=== PATIENT | female | born 1995 | race Caucasian/White ===

== ENCOUNTER 2017-02-09 09:30 | Emergency (ER) | payer OTHER ==
[2017-02-09 09:35] VITALS: TEMP 98.9; BMI 31.8
--- NOTE | 2017-02-09 10:19 | PDOC ---
History of Present Illness - General Chief Complaint: Vaginal Bleeding Stated Complaint: VAGINAL BLEEDING Time Seen by Provider: 02/09/17 09:45 - History of Present Illness Initial Comments: 02/09/17 10:14 21 F with no PMH presents to ER with abnormal menstrual bleeding. Pt states that her period started 12 days ago, and she has been bleeding continuously since then. She typically bleeds for 5 days and is very regular. Pt states that she has been going through 4 pads per day, which is her normal flow, but for over twice as long as usual. Pt endorses suprapubic cramping consistent with her menstrual cramps. Denies any other vaginal discharge, denies any sexual history. Denies dysuria. Denies lightheadedness/dizziness. Denies CP/SOB/ palpitations. Pt states that she has never seen an appliance worker before, is not on OCPs. Past History - Past Medical History Allergies/Adverse Reactions: Allergies Allergy/AdvReac Type Severity Reaction Status Date / Time No Known Allergies Allergy Verified 02/09/17 09:36 Home Medications: Ambulatory Orders NK [No Known Home Medication] 02/09/17 - Psycho/Social/Smoking Cessation Hx Suicidal Ideation: No Smoking History: Never smoked Information on smoking cessation initiated: No Review of Systems - Review of Systems Comments:: 02/09/17 10:19 "GENERAL/CONSTITUTIONAL: No fever or chills. No weakness. HEAD, EYES, EARS, NOSE AND THROAT: No change in vision. No ear pain or discharge. No sore throat. CARDIOVASCULAR: No chest pain or shortness of breath. RESPIRATORY: No cough, wheezing, or hemoptysis. GASTROINTESTINAL: +cramps, No nausea, vomiting, diarrhea or constipation. GENITOURINARY: +vaginal bleeding, No dysuria, frequency, or change in urination. MUSCULOSKELETAL: No joint or muscle swelling or pain. No neck or back pain. SKIN: No rash NEUROLOGIC: No headache, vertigo, loss of consciousness, or change in strength/ sensation. ENDOCRINE: No increased thirst. No abnormal weight change. HEMATOLOGIC/LYMPHATIC: No anemia, easy bleeding, or history of blood clots. ALLERGIC/IMMUNOLOGIC: No hives or skin allergy. " *Physical Exam - Vital Signs Last Vital Signs Temp Pulse Resp BP Pulse Ox 98.9 F 76 18 122/69 99 02/09/17 09:31 02/09/17 09:31 02/09/17 09:31 02/09/17 09:31 02/09/17 09:31 - Physical Exam Comments: 02/09/17 10:20 "GENERAL: Awake, alert, and fully oriented, in no acute distress HEAD: No signs of trauma EYES: PERRLA, EOMI, sclera anicteric, conjunctiva clear ENT: Auricles normal inspection, hearing grossly normal, nares patent, oropharynx clear without exudates. Moist mucosa NECK: Normal ROM, supple, no lymphadenopathy, JVD, or masses LUNGS: Breath sounds equal, clear to auscultation bilaterally. No wheezes, and no crackles HEART: Regular rate and rhythm, normal S1 and S2, no murmurs, rubs or gallops ABDOMEN: Soft, nontender, normoactive bowel sounds. No guarding, no rebound. No masses EXTREMITIES: Normal range of motion, no edema. No clubbing or cyanosis. No cords, erythema, or tenderness NEUROLOGICAL: Cranial nerves II through XII grossly intact. Normal speech, normal gait SKIN: Warm, Dry, normal turgor, no rashes or lesions noted. : scant blood in vaginal vault, os closed, no CMT, no masses, no adnexal tenderness ED Treatment Course - LABORATORY CBC & Chemistry Diagram: 02/09/17 10:35 02/09/17 10:35 Medical Decision Making - Medical Decision Making 02/09/17 10:21 21 F with menorrhagia. Pt with stable vitals, well appearing. Completely benign abdomen. No signs of significant blood loss. Pelvic exam with no masses or tenderness. Will check CBC to r/o anemia, coags to r/o coagulopathy, UPT, and UA. - Labs, coags, UPT, UA - F/u post doc fellowship 02/09/17 11:36 CBC,CMP WBC 9.7 K/mm3 (4.0-10.0) 02/09/17 10:35 RBC 4.94 M/mm3 (3.60-5.2) 02/09/17 10:35 Hgb 12.9 GM/dL (10.7-15.3) 02/09/17 10:35 Hct 39.7 % (32.4-45.2) 02/09/17 10:35 MCV 80.3 fl (80-96) 02/09/17 10:35 MCH 26.2 pg (25.7-33.7) 02/09/17 10:35 MCHC 32.6 g/dl (32.0-36.0) 02/09/17 10:35 RDW 14.5 % (11.6-15.6) 02/09/17 10:35 Plt Count 204 K/MM3 (134-434) 02/09/17 10:35 MPV 9.2 fl (7.5-11.1) 02/09/17 10:35 Neutrophils % 59.5 % (42.8-82.8) 02/09/17 10:35 Lymphocytes % 31.6 % (8-40) 02/09/17 10:35 Monocytes % 6.4 % (3.8-10.2) 02/09/17 10:35 Eosinophils % 1.8 % (0-4.5) 02/09/17 10:35 Basophils % 0.7 % (0-2.0) 02/09/17 10:35 Sodium 137 mmol/L (136-145) 02/09/17 10:35 Potassium 4.5 mmol/L (3.5-5.1) 02/09/17 10:35 Chloride 105 mmol/L (98-107) 02/09/17 10:35 Carbon Dioxide 28 mmol/L (21-32) 02/09/17 10:35 Anion Gap 4 (8-16) L 02/09/17 10:35 BUN 13 mg/dL (7-18) 02/09/17 10:35 Creatinine 0.6 mg/dL (0.55-1.02) 02/09/17 10:35 Creat Clearance w eGFR > 60 (>60) 02/09/17 10:35 Random Glucose 99 mg/dL (74-106) 02/09/17 10:35 Calcium 9.2 mg/dL (8.5-10.1) 02/09/17 10:35 Total Bilirubin 0.4 mg/dL (0.2-1.0) 02/09/17 10:35 AST 31 U/L (15-37) 02/09/17 10:35 ALT 34 U/L (12-78) 02/09/17 10:35 Alkaline Phosphatase 93 U/L (45-117) 02/09/17 10:35 Total Protein 8.3 g/dl (6.4-8.2) H 02/09/17 10:35 Albumin 4.0 g/dl (3.4-5.0) 02/09/17 10:35 TSH 1.36 uIU/ml (0.358-3.74) 02/09/17 10:35 Labs wnl. Pt hemodynamically stable. Safe for DC home. *DC/Admit/Observation/Transfer Diagnosis at time of Disposition: Menorrhagia - Discharge Dispostion Disposition: HOME - Referrals Referrals: Brad Serrano MD [Staff Physician] - - Patient Instructions Printed Discharge Instructions: DI for Menorrhagia Additional Instructions: Please call the number provided to make an appointment with an appliance worker to have your vaginal bleeding further evaluated. You may need to start taking control pills to help control your menstrual cycle. If you experience persistent or worsening bleeding, lightheadedness, palpitations, or any other concerning symptoms, return immediately to the ER. - Attestations Physician Attestion: 02/09/17 11:39 I, Dr. Kyler Roth MD, attest that this document has been prepared under my direction and personally reviewed by me in its entirety. I further attest, that it accurately reflects all work, treatment, procedures and medical decision -making performed by me.
[2017-02-09] MEDS ORDERED: ACETAMINOPHEN 500 MG TABLET (FP) PO ONE (10:47)
[2017-02-09 10:52] LABS: BASOPHIL 0.7 % (0-2.0); EOSINOPHIL 1.8 % (0-4.5); MCH 26.2 pg (25.7-33.7); MCHC 32.6 g/dl (32.0-36.0); MEAN CELL VOLUME 80.3 fl (80-96); MEAN PLT VOLUME 9.2 fl (7.5-11.1); NEUTROPHILS 59.5 % (42.8-82.8); PLATELET COUNT 204 K/MM3 (134-434); RDW 14.5 % (11.6-15.6); WHITE BLOOD COUNT 9.7 K/mm3 (4.0-10.0)
[2017-02-09 10:54] LABS: URINE APPEARANCE SLCLOUDY; URINE BILIRUBIN NEGATIVE (NEGATIVE); URINE BLOOD 3+ (NEGATIVE); URINE COLOR YELLOW; URINE GLUCOSE (UA) NEGATIVE (NEGATIVE); URINE KETONE NEGATIVE (NEGATIVE); URINE LEUK ESTERASE NEGATIVE (NEGATIVE); URINE NITRITE NEGATIVE (NEGATIVE); URINE UROBILINOGEN NEGATIVE mg/dL (0.2-1.0)
[2017-02-09 10:57] LABS: URINE PROTEIN 1+ (NEGATIVE)
[2017-02-09 10:59] LABS: CALCIUM OXALATE CRYSTALS RARE /hpf (NONE SEEN); URINE BACTERIA RARE /hpf (NONE SEEN); URINE MUCUS MANY; URINE RBC 476 /hpf (0-3); URINE WBC 3 /hpf (3-5)
[2017-02-09 11:07] LABS: INR 1.1 (0.82-1.09); PROTHROMBIN TIME (PATIENT) 12.1 SEC (9.98-11.88)
[2017-02-09 11:09] LABS: ACTIVATED PTT 37.7 SECONDS (26.9-34.4)
[2017-02-09 11:17] LABS: ANION GAP 4 (8-16); BILIRUBIN,TOTAL 0.4 mg/dL (0.2-1.0); CALCIUM 9.2 mg/dL (8.5-10.1); CO2 28 mmol/L (21-32); CREATININE 0.6 mg/dL (0.55-1.02); GLUCOSE,RANDOM 99 mg/dL (74-106); SGPT/ALT 34 U/L (12-78); TOT PROT 8.3 g/dl (6.4-8.2)
[2017-02-09 11:26] LABS: ALK PHOS 93 U/L (45-117); THYROID STIMULATING HORMONE 1.36 uIU/ml (0.358-3.74)
[2017-02-09 11:29] LABS: SGOT/AST 31 U/L (15-37)
[2017-02-09 11:48] VITALS: BP 108/88; PULSE 68
== END 2017-02-09 11:49 | disposition home or self-care (01) ==
LOC: JER 09:30
DX: N92.0 Excessive and frequent menstruation with regular cycle (principal)
CPT/HCPCS: 36415; 80053; 81003; 81015; 84443; 84703; 85025; 85610; 85730; 86850; 86900; 86901; 99282-25

== ENCOUNTER 2019-01-07 16:41 | Emergency (ER) | payer OTHER ==
--- NOTE | 2019-01-07 16:44 | PDOC ---
Rapid Medical Evaluation Time Seen by Provider: 01/07/19 16:43 Medical Evaluation: Allergies Allergy/AdvReac Type Severity Reaction Status Date / Time No Known Allergies Allergy Verified 01/07/19 16:43 01/07/19 16:43 HPI: 9 weeks gravid with bleeding PV PE: No gross deficits ORDERS: Labs and US Discharge Disposition - Diagnosis Threatened - Referrals - Patient Instructions - Post Discharge Activity
[2019-01-07 16:47] VITALS: BP 130/76; PULSE 83; TEMP 98.8; BMI 31.5
--- NOTE | 2019-01-07 17:28 | PDOC ---
History of Present Illness - General Chief Complaint: Vaginal Bleeding Stated Complaint: BLEEDING Time Seen by Provider: 01/07/19 16:43 - History of Present Illness Initial Comments: 01/07/19 18:18 Ms. Win is a 23 y/o with no PMH, , 9 weeks (LMP November 02 2018) presenting after an episode of vaginal bleeding. She reports using the restroom at work to urinate and noticing three "quarter sized" splashes of blood in the toilet. She reports that this is her first . She also reports mild right lower abdominal pain. She reports that her Tuber Machine Cutter is Dr. Andressa Godinez, and that she has an ultrasound scheduled for January 30. Her only medications are an iron supplement and vitamins. Past History - Past Medical History Allergies/Adverse Reactions: Allergies Allergy/AdvReac Type Severity Reaction Status Date / Time No Known Allergies Allergy Verified 01/07/19 16:43 Home Medications: Ambulatory Orders NK [No Known Home Medication] 02/09/17 - Reproductive History Therapeutic (s) & number: No - Suicide/Smoking/Psychosocial Hx Smoking History: Never smoked Hx Alcohol Use: No Drug/Substance Use Hx: No Review of Systems - Review of Systems Able to Perform ROS?: Yes Comments:: 01/07/19 18:38 ROS: GENERAL/CONSTITUTIONAL: No fever or chills. No weakness. HEAD, EYES, EARS, NOSE AND THROAT: No change in vision. No ear pain or discharge. No sore throat. CARDIOVASCULAR: No chest pain or shortness of breath RESPIRATORY: No cough, wheezing, or hemoptysis. GASTROINTESTINAL: No nausea, vomiting, diarrhea or constipation. GENITOURINARY: Single episode vaginal bleed. No dysuria, frequency, or change in urination. MUSCULOSKELETAL: No joint or muscle swelling or pain. No neck or back pain. SKIN: No rash NEUROLOGIC: No headache, vertigo, loss of consciousness, or change in strength/ sensation. ENDOCRINE: No increased thirst. No abnormal weight change HEMATOLOGIC/LYMPHATIC: No anemia, easy bleeding, or history of blood clots. ALLERGIC/IMMUNOLOGIC: No hives or skin allergy. *Physical Exam - Vital Signs Last Vital Signs Temp Pulse Resp BP Pulse Ox 98.8 F 83 18 130/76 100 01/07/19 16:44 01/07/19 16:44 01/07/19 16:44 01/07/19 16:44 01/07/19 16:44 - Physical Exam Comments: 01/07/19 18:37 PE: GENERAL: Awake, alert, and fully oriented, in no acute distress HEAD: No signs of trauma, normocephalic, atraumatic EYES: PERRLA, EOMI, sclera anicteric, conjunctiva clear ENT: Auricles normal inspection, hearing grossly normal, nares patent, oropharynx clear without exudates. Moist mucosa NECK: Normal ROM, supple, no lymphadenopathy, JVD, or masses LUNGS: No distress, speaks full sentences, clear to auscultation bilaterally HEART: Regular rate and rhythm, normal S1 and S2, no murmurs, rubs or gallops, peripheral pulses normal and equal bilaterally. ABDOMEN: Mild tenderness of R lower abdomen. Soft, normoactive bowel sounds. No guarding, no rebound. No masses EXTREMITIES : Normal inspection, Normal range of motion, no edema. No clubbing or cyanosis. NEUROLOGICAL: Cranial nerves II through XII grossly intact. Normal speech, normal gait, no focal sensorimotor deficits SKIN: Warm, Dry, normal turgor, no rashes or lesions noted 01/07/19 19:16 Pelvic exam: Cervical os visualized, closed, no erythema or active bleeding. ED Treatment Course - LABORATORY CBC & Chemistry Diagram: 01/07/19 17:21 01/07/19 17:50 Medical Decision Making - Medical Decision Making 23 y/o F with no PMH 9 weeks p/w one episode vaginal bleed at work with mild right lower abdominal pain. Differential includes first trimester bleeding, R ectopic , threatened . Plan: CBC CMP T/S Beta hcg quant Transvaginal ultrasound Pelvic exam 01/07/19 18:43 Patient being evaluated by ultrasound resident - abdominal US. cardiac movements noted. *DC/Admit/Observation/Transfer Diagnosis at time of Disposition: First trimester bleeding - Discharge Dispostion Disposition: HOME Condition at time of disposition: Good Decision to Admit order: No - Referrals Referrals: Andressa Godinez CNM [Primary Care Provider] - - Patient Instructions Printed Discharge Instructions: DI for Vaginal Bleeding During Additional Instructions: You were evaluated in the Emergency Department for vaginal bleeding during the first trimester of your . We conducted a physical exam, bloodwork, and ultrasound imaging of your uterus. We did not see any active bleeding from the uterus during the pelvic exam. The ultrasound showed a with a heartbeat. Some women have small amounts of bleeding during their first trimester. 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 Please return to the emergency department if you develop any sharp pain, have worsening bleeding and are soaking through two pads in two hours, or if you feel dizzy, confused, chest pain, trouble breathing, or have a high fever. Please take tylenol over the counter as needed for pain. - Post Discharge Activity
[2019-01-07 17:48] LABS: BASO % 0.3 % (0-2.0); EOS % 1.4 % (0-4.5); HEMATOCRIT 38.4 % (32.4-45.2); HEMOGLOBIN 12.5 GM/dL (10.7-15.3); LYMPH % 30.2 % (8-40); MCH 26.3 pg (25.7-33.7); MCHC 32.5 g/dl (32.0-36.0); MEAN CELL VOLUME 80.8 fl (80-96); MEAN PLT VOLUME 9.4 fl (7.5-11.1); MONO % 6.1 % (3.8-10.2); PLATELET COUNT 184 K/MM3 (134-434); RBC 4.76 M/mm3 (3.60-5.2); RDW 14.7 % (11.6-15.6); WHITE BLOOD COUNT 10.4 K/mm3 (4.0-10.0)
[2019-01-07 17:53] LABS: INR 1.06 (0.83-1.09); PROTHROMBIN TIME (PATIENT) 12.5 SEC (9.7-13.0)
[2019-01-07 17:54] LABS: PH,URINE 6.5 (5.0-8.0); URINE APPEARANCE CLEAR; URINE BILIRUBIN NEGATIVE (NEGATIVE); URINE COLOR YELLOW; URINE GLUCOSE (UA) NEGATIVE (NEGATIVE); URINE KETONE NEGATIVE (NEGATIVE); URINE LEUK ESTERASE NEGATIVE (NEGATIVE); URINE NITRITE NEGATIVE (NEGATIVE); URINE PROTEIN NEGATIVE (NEGATIVE); URINE UROBILINOGEN 0.2 mg/dL (0.2-1.0)
[2019-01-07] MEDS ORDERED: SODIUM CHLORIDE 0.9% 1000 ML INFUS.BAG IV ONE (18:46)
--- NOTE | 2019-01-07 18:46 | PDOC ---
Documentation entered by Marylu Boston SCRIBE, acting as scribe for Karli Hamm MD. Karli Hamm MD: This documentation has been prepared by the Ludy berumen Brenda, SCRIBE, under my direction and personally reviewed by me in its entirety. I confirm that the documentation accurately reflects all work, treatment, procedures, and medical decision making performed by me. Attending Attestation - Resident Resident Name: Deion Mason - ED Attending Attestation I have performed the following: I have examined & evaluated the patient, The case was reviewed & discussed with the resident, I agree w/resident's findings & plan, Exceptions are as noted - HPI HPI: 01/07/19 18:37 23 yo G1po @ 9 weeks , with no significant PMH who presents to the emergency department with an episode of vaginal bleeding. As per patient, she was urinating in the restroom at work, at which time she noted 3 small, quarter sized dashes of blood in the toilet. She also endorses mild lower abd pain. crampy in nature. no mod factors. and has been taking iron supplements and vitamins. She reports having an ultrasound scheduled for 01/30/19. LMP was November 02, 2018. no other complaints. The patient denies chest pain, shortness of breath, headache and dizziness. Denies fever, chills, nausea, vomiting, diarrhea and constipation. Denies dysuria, frequency, urgency and hematuria. Allergies: NKA Past surgical history: None reported Social history: No tobacco use. SUPERVISOR STRIPPING: Andressa Godinez CNM 01/07/19 18:44 - Physicial Exam PE: 01/07/19 18:45 awake alert lungs clear bilat heart rrr no mrg abd soft mild suprapubic ttp no rebound no guarding. no cva tendernss. nuero alert oriented x 3. - Medical Decision Making 01/07/19 18:45 23 yo F G1P) at 9 weeks with vaginal bleeding. differential ectopic, threatened ab, incomlete ab breakthrough bleeding. plan tvus labs type and screen ua bhcg.
[2019-01-07 18:47] LABS: ALBUMIN 3.8 g/dl (3.4-5.0); BILIRUBIN,TOTAL 0.1 mg/dL (0.2-1); BLOOD UREA NITROGEN 13.2 mg/dL (7-18); CREATININE 0.6 mg/dL (0.55-1.3); POTASSIUM 3.7 mmol/L (3.5-5.1); TOT PROT 7.4 g/dl (6.4-8.2)
--- NOTE | 2019-01-07 19:31 | PDOC ---
*Physical Exam - Vital Signs Last Vital Signs Temp Pulse Resp BP Pulse Ox 98.8 F 83 18 130/76 100 01/07/19 16:44 01/07/19 16:44 01/07/19 16:44 01/07/19 16:44 01/07/19 16:44 ED Treatment Course - LABORATORY CBC & Chemistry Diagram: 01/07/19 17:21 01/07/19 17:50 - ADDITIONAL ORDERS Additional order review: Laboratory Results 01/07/19 01/07/19 01/07/19 17:50 17:38 17:38 PT with INR INR Sodium 139 Potassium 3.7 Chloride 104 Carbon Dioxide 26 Anion Gap 9 BUN 13.2 Creatinine 0.6 Est GFR (CKD-EPI)AfAm 147.86 Est GFR (CKD-EPI)NonAf 127.58 Random Glucose 92 Calcium 9.0 Total Bilirubin 0.1 L AST 11 L ALT 24 Alkaline Phosphatase 71 Total Protein 7.4 Albumin 3.8 Beta HCG, Quant 21513.0 Urine Color Yellow Urine Appearance Clear Urine pH 6.5 Ur Specific [place] 1.012 Urine Protein Negative Urine Glucose (UA) Negative Urine Ketones Negative Urine Blood Negative Urine Nitrite Negative Urine Bilirubin Negative Urine Urobilinogen 0.2 Ur Leukocyte Esterase Negative Urine HCG, Qual Positive 01/07/19 17:21 PT with INR 12.50 INR 1.06 Sodium Potassium Chloride Carbon Dioxide Anion Gap BUN Creatinine Est GFR (CKD-EPI)AfAm Est GFR (CKD-EPI)NonAf Random Glucose Calcium Total Bilirubin AST ALT Alkaline Phosphatase Total Protein Albumin Beta HCG, Quant Urine Color Urine Appearance Urine pH Ur Specific [place] Urine Protein Urine Glucose (UA) Urine Ketones Urine Blood Urine Nitrite Urine Bilirubin Urine Urobilinogen Ur Leukocyte Esterase Urine HCG, Qual 01/07/19 17:21 RBC 4.76 MCV 80.8 MCHC 32.5 RDW 14.7 MPV 9.4 Neutrophils % 62.0 Lymphocytes % 30.2 Monocytes % 6.1 Eosinophils % 1.4 Basophils % 0.3 Medical Decision Making - Medical Decision Making 01/07/19 19:29 23y/o F presenting 9 wks by LMP 11/02/2018with vaginal bleeding U/S: IUP with heartbeat 180bpm Results Pt is O+. Type and Screen sent and pending. discharge home with f/up to INSOLE TAPER 01/07/19 20:51 antibody screen negative, discharge and f/up with INSOLE TAPER 01/08/19 07:52 01/08/19 07:56 *DC/Admit/Observation/Transfer Diagnosis at time of Disposition: First trimester bleeding - Discharge Dispostion Disposition: HOME Condition at time of disposition: Good Decision to Admit order: No - Referrals Referrals: Andressa Godinez CNM [Primary Care Provider] - - Patient Instructions Printed Discharge Instructions: DI for Vaginal Bleeding During Additional Instructions: You were evaluated in the Emergency Department for vaginal bleeding during the first trimester of your . We conducted a physical exam, bloodwork, and ultrasound imaging of your uterus. We did not see any active bleeding from the uterus during the pelvic exam. The ultrasound showed a with a heartbeat. Some women have small amounts of bleeding during their first trimester. Please follow up with your molder in the next three days. Please return to the emergency department if you develop any sharp pain, have worsening bleeding and are soaking through two pads in two hours, or if you feel dizzy, confused, chest pain, trouble breathing, or have a high fever. Please take tylenol over the counter as needed for pain. - Post Discharge Activity
== END 2019-01-07 21:14 | disposition home or self-care (01) ==
LOC: JER 16:41
PROC: 3E0337Z Introduction of Electrolytic and Water Balance Substance into Peripheral Vein, Percutaneous Approach (ICD-10-PCS; principal; 2019-01-07)
DX: O26.851 Spotting complicating pregnancy, first trimester (principal); Z3A.09 9 weeks gestation of pregnancy
CPT/HCPCS: 36415; 76815; 80053; 81003; 84702; 84703; 85025; 85610; 86850; 86900; 86901; 99283-25; J7030

== ENCOUNTER 2019-07-22 09:50 | Inpatient (IN) | payer OTHER ==
--- NOTE | 2019-07-22 10:28 | HP ---
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: Alzheimer's, CVA, Dementia, Migraine, Multiple Sclerosis, Peripheral Neuropathy, Parkinson's, Seizure, Syncope, TIA, Vertigo, Other Cardiovascular: No: AFIB, Aneurysm, Aortic Insufficiency, Aortic Stenosis, CAD, CHF, Deep Vein Thrombosis, HTN, Hyperlipdemia, [place], Mitral Insufficiency, Mitral Stenosis, Murmur, Pulmonary Hypertension, Other Pulmonary: No: Asthma, Bronchitis, Cancer, COPD, O2 Dependent, Pneumonia, Previously Intubated, Pulmonary Embolus, Pulmonary Fibrosis, Sleep Apnea, Other (+PPD and negative Chest X-ray) Gastrointestinal: No: Ascites, Cancer, Constipation, Crohn's Disease, Diverticulitis, Diverticulosis, Esophageal Varices, Gastritis, GERD, GI Bleed, Hemorrhoids, Hiatal Hernia, Inflamatory Bowel Disease, Irritable Bowel Disease, Pancreatitis, Peptic Ulcer Disease, Ulcerative Colitis, Other Hepatobiliary: No: Cirrhosis, Cholelithiasis, Cholecystitis, Choledocholithiasis , Hepatitis A, Hepatitis B, Hepatitis C, Other Renal/: No: Renal Failure, Renal Inusuff, BPH, Cancer, Hematuria, Hemodialysis , Neurogenic Bladder, Renal Calculi, UTI, Other Reproductive: No: Ectopic , Endometriosis, Fibroids, PID, Polycystic Ovary Syndrome, Postmenopausal, Other ...: 1 Heme/Onc: No: Anemia, B12 Deficiency, Bleeding Disorder, Cancer, Current Chemotherapy, Current Radiation Therapy, Hemochromatosis, Hypercoaguable State, Myeloproliferative Synd, Sickle Cell Disease, Sickle Cell Trait, Thrombocytopenia, Other Infectious Disease: No: AIDS, C-Diff, Herpes Zoster, HIV, MRSA, STD's, Tuberculosis, VREF, Other Psych: No: Addictions, Anxiety, Bipolar, Depression, Panic, Psychosis, Schizophrenia, Other Musculoskeletal: No: Bursitis, Chronic low back pain, Hemiparesis, Hemiplegia, Osteoarthritis, Paraplegia, Other Rheumatology: No: Fibromyalgia, Gout, Lupus, Rheumatoid Arthritis, Sarcoidosis, Vasculitis, Other ENT: No: Allergic Rhinitis, Sinusitis, Other Endocrine: No: Roberto's Disease, Lacey's Disease, Diabetes Insipidus, Diabetes Mellitus, Hyperparathyroidism, Hyperthyroidism, Hypothyroidism, Osteopenia, SIADH, Other Dermatology: No: Basal Cell, Cellulitis, Eczema, Melanoma, Psoriasis, Squamous Cell, Other - Past Surgical History Past Surgical History: No: None, AAA Repair, AICD, Amputation, Appendectomy, Arthrosocopy, AV Fistula/Graft, Bariatric Surgery, Breast Biopsy, Bypass, CABG, Carotid Endarterectomy, Cataract Removal, Cholecystectomy, Colectomy, Colonoscopy, Colostomy, Craniotomy, , Cystectomy, Hernia Repair, Hysterectomy, Ileal Conduit, Ileosotomy, Joint Replacement, Kidney Transplant, Laminectomy, Liver Transplant, Mastectomy, Nephrectomy, Oopherectomy, Orchiectomy, Permanent Pacemaker, Prostatectomy, Splenectomy, Stent, Thoracotomy , TURP, Tonsillectomy, Tubal Ligation, Upper Endoscopy, Valve Replacement, Vasectomy, Vein Stripping/Ligation Hx Myomectomy: No Hx Transabdominal Cerclage: No - Smoking History Smoking history: Never smoked - Alcohol/Substance Use Hx Alcohol Use: No History of Substance Use: reports: None - Social History History of Recent Travel: No Home Medications - Allergies Allergies/Adverse Reactions: Allergies Allergy/AdvReac Type Severity Reaction Status Date / Time No Known Allergies Allergy Verified 07/22/19 10:08 - Home Medications Home Medications: Ambulatory Orders Prenat 115/Iron Fum/Folic/Dss [ 19 Tablet] 1 tab PO DAILY 07/22/19 Ursodiol 1 tab PO BID 07/22/19 Family Medical History Family History: Unremarkable Review of Systems Findings/Remarks: Patient reports being anxious - Review of Systems Constitutional: reports: No Symptoms Eyes: reports: No Symptoms HENT: reports: No Symptoms Neck: reports: No Symptoms Cardiovascular: reports: No Symptoms Respiratory: reports: No Symptoms Genitourinary: reports: No Symptoms Breasts: reports: No Symptoms Reported Musculoskeletal: reports: No Symptoms Integumentary: reports: No Symptoms Neurological: reports: No Symptoms Endocrine: reports: No Symptoms Hematology/Lymphatic: reports: No Symptoms Psychiatric: reports: No Symptoms Physical Exam - Maternity Constitutional: Yes: Well Nourished, No Distress HENT: Yes: Atraumatic Neck: Yes: Supple Cardiovascular: Yes: Regular Rate and Rhythm Breast(s): Yes: Other (deferred) - Abdominal Exam/OB Number of Fetuses: Single Presentation: Vertex (by Rolly's) Contractions: No Monitor Mode: External Heart Rate (range): 145 Category: I Accelerations: Uniform Decelerations: None - Vaginal Exam/OB Dilatation (cm): 0 Effacement (%): 0 Amniotic Membrane Status: Intact Presentation: Vertex/Position (by rolly's. Cervidil placed in vaginal vault) Station: -3 - Physical Exam Musculoskeletal: Yes: WNL, Muscle Weakness Edema: Yes Edema: LLE: Trace, RLE: Trace Integumentary: Yes: WNL ...Motor Strength: WNL Psychiatric: Yes: Alert, Oriented - Labs Lab Results: Labs reviewed including bile acids performed by [facility] Imaging - Results Ultrasound: Report Reviewed (All imaging reviewed. 07/03/19: 2775g, CLYDE 7cm, vertex, ant placenta) Problem List - Problems (1) Cholestasis during Code(s): O26.619 - LIVER AND BILIARY TRACT DISORD IN , UNSP TRIMESTER; K83.1 - OBSTRUCTION OF BILE DUCT Assessment/Plan 24 y/o G1 @ 37.2wks presenting for induction of labor due to cholestasis. significant for +GDS and negative GTT. Diagnosis explained and patient counseled regarding induction of labor at bedside. Informed consent obtained and cervidil placed. -Continue with induction -Continuous monitoring -Diet x 1 is OK -Re-evaluate accordingly
[2019-07-22] MEDS ORDERED: DINOPROSTONE 10 MG VAGINAL SUPPOSITORY VG ONE ×2 (10:30→11:36)
[2019-07-22 10:33] VITALS: BMI 32.2
[2019-07-22 10:54] LABS: BASO % 0.4 % (0-2.0); EOS % 0.9 % (0-4.5); HEMATOCRIT 33.9 % (32.4-45.2); HEMOGLOBIN 10.9 GM/dL (10.7-15.3); LYMPH % 20.5 % (8-40); MCHC 32.3 g/dl (32.0-36.0); MEAN CELL VOLUME 77.5 fl (80-96); MONO % 6.1 % (3.8-10.2); NEUT % 72.1 % (42.8-82.8); PLATELET COUNT 146 K/MM3 (134-434); RBC 4.38 M/mm3 (3.60-5.2); RDW 14.9 % (11.6-15.6); WHITE BLOOD COUNT 9.8 K/mm3 (4.0-10.0)
[2019-07-22 11:05] LABS: INR 0.91 (0.83-1.09); PROTHROMBIN TIME (PATIENT) 10.7 SEC (9.7-13.0)
[2019-07-22 11:07] LABS: ACTIVATED PTT 34.3 SECONDS (25.2-36.5)
[2019-07-22 11:20] LABS: BLOOD UREA NITROGEN 9.4 mg/dL (7-18); CALCIUM 8.5 mg/dL (8.5-10.1); CREATININE 0.5 mg/dL (0.55-1.3)
[2019-07-22] MEDS: ELECTROLYTE-148 SOLN 1,000 ML IV SCH (23:00)
[2019-07-22] MEDS ORDERED: OXYTOCIN 30 UNITS in 0.9% NS 30 UNIT/500 ML INFUS.BAG IVPB SCH (23:00)
--- NOTE | 2019-07-22 23:09 | PN ---
Progress Note, Labor Vaginal Exam #1 Labor Exam Date: 07/22/19 Labor Exam Time: 23:08 Heart Rate (range): Cat I Dilatation: 2 Effacement (%): 50 Amniotic Membrane Status: Intact Presentation: Vertex/Position Station: -3 Remarks: Cervidil pulled Pitocin to start Epidural prn, poor tolerance of exam Anticipate eventual Thomas Guo MD
[2019-07-22] MEDS ORDERED: OXYTOCIN 30 UNITS in 0.9% NS 30 UNIT/500 ML INFUS.BAG IVPB ONE (23:12)
[2019-07-23] MEDS: ELECTROLYTE-148 SOLN 1,000 ML IV SCH ×2 (06:25→14:00)
--- NOTE | 2019-07-23 07:47 | PN ---
Progress Note, Labor Vaginal Exam #2 Labor Exam Date: 07/23/19 Labor Exam Time: 07:46 Heart Rate (range): Cat I Dilatation: 2-3 Effacement (%): 50 Amniotic Membrane Status: Intact Presentation: Vertex/Position Station: -3 Remarks: Continue pitocin Epidural prn Anticipate KATHY Guo MD
--- NOTE | 2019-07-23 11:16 | PN ---
Progress Note (short form) - Note Progress Note: 24 yrs 37.2/7 weeks admitted on 07/22/19 for induction of labor due to choleostasis .GBS ng cervidil induction followed by Pitocin started at 12.15 am pt is feeling mid cramps . o/e p/a term size ut , vx , fhr 150 bpm Vag ex : Ext os 3 cm/ Int os 1 cm / 60 % efface /MD/ Vx -3/-2 station Monitoring : FHR 150 BPM CAT-1 , UC 3-5 min , mild Selected Entries 07/23/19 10:00 Temperature 98.8 F Pulse Rate 86 Blood Pressure 123/64 Laboratory Tests 07/22/19 07/22/19 07/22/19 10:24 10:24 10:24 WBC 9.8 Hgb 10.9 Plt Count 146 D PT with INR 10.70 INR 0.91 PTT (Actin FS) 34.3 Sodium 138 Potassium 4.0 Chloride 110 H Carbon Dioxide 21 Anion Gap 7 L BUN 9.4 Creatinine 0.5 L Est GFR (CKD-EPI)AfAm 155.90 Est GFR (CKD-EPI)NonAf 134.52 Random Glucose 89 Calcium 8.5 RPR Titer Blood Type Antibody Screen 07/22/19 07/22/19 10:24 10:24 WBC Hgb Plt Count PT with INR INR PTT (Actin FS) Sodium Potassium Chloride Carbon Dioxide Anion Gap BUN Creatinine Est GFR (CKD-EPI)AfAm Est GFR (CKD-EPI)NonAf Random Glucose Calcium RPR Titer Nonreactive Blood Type O POSITIVE Antibody Screen Negative Plan Pt may shower continue Pitocin induction
[2019-07-23] MEDS ORDERED: OXYTOCIN 30 UNITS in 0.9% NS 30 UNIT/500 ML INFUS.BAG IVPB ONE (16:58)
[2019-07-23] MEDS ORDERED: PROMETHAZINE HCL 25 MG/1 ML VIAL IVPB ONE (21:23)
[2019-07-23] MEDS ORDERED: BUTORPHANOL TARTRATE 1 MG/ML VIAL IVPUSH PRN (21:23)
--- NOTE | 2019-07-23 21:28 | PN ---
Progress Note (short form) - Note Progress Note: 315 pm cx 2 cm 70 vx -2 mi, arom, vlear , fhr cat 1, irregular contraction
[2019-07-23] MEDS ORDERED: PROMETHAZINE HCL 25 MG/1 ML VIAL ONE (23:46)
[2019-07-23] MEDS ORDERED: BUTORPHANOL TARTRATE 1 MG/ML VIAL ONE ×2 (23:46)
[2019-07-24] MEDS ORDERED: FENTANYL/BUPIVACAINE/NS/PF - PCEA - 50 ML DISP.SYRIN EP ONE (03:29)
[2019-07-24] MEDS: FENTANYL/BUPIVACAINE/NS/PF - PCEA - 50 ML DISP.SYRIN EP SCH (04:00)
[2019-07-24] MEDS ORDERED: NALOXONE HCL 0.4 MG/ML VIAL IVPUSH PRN (05:03)
--- NOTE | 2019-07-24 06:42 | PN ---
Progress Note (short form) - Note Progress Note: cx 8 to 9 cm 80 vx 0 mr, , had 2 spont. decel, was on her back, moved to LT side , o2. given will revaluate, prior tracing wass reactive cat 1
[2019-07-24] MEDS ORDERED: OXYTOCIN 20 UNITS in 0.9% NS 20 UNIT/1,000 ML INFUS.BAG IV ONE (07:51)
--- NOTE | 2019-07-24 07:59 | PN ---
Progress Note (short form) - Note Progress Note: full 100 vx 2+ , fhr cat1, wants to push
[2019-07-24] MEDS ORDERED: BISACODYL 10 MG SUPP.RECT RC PRN (08:53)
[2019-07-24] MEDS ORDERED: ACETAMINOPHEN 325 MG TABLET (FP) PO PRN (08:53)
[2019-07-24] MEDS ORDERED: IBUPROFEN 600 MG TABLET (FP) PO PRN (08:53)
[2019-07-24] MEDS ORDERED: WITCH HAZEL 50% (TUCKS) 40 PAD/JAR PAD TP PRN (08:53)
[2019-07-24] MEDS ORDERED: METHYLERGONOVINE MALEATE 0.2 MG/1 ML AMP IM PRN (08:53)
[2019-07-24] MEDS ORDERED: BENZOCAINE 28 GM HEMORRHOIDAL OINTMENT TP PRN (08:53)
[2019-07-24] MEDS ORDERED: BENZOCAINE 20% 57 GM BOTTLE TP PRN (08:53)
--- NOTE | 2019-07-24 08:55 | PN ---
Delivery - Delivery Vaginal Delivery: Spontaneous (cx full , head delivered , nasopharynx suctioned , ant.and post. shoulder with no difficulty , live baby , 9/9, placeta complete, spontaneous , uterus explored , no laceration, ebl 300 cc , no complication) Type of Anesthesia: Epidural Delivery, Single - 1 Minute Total Score: 9 5 Minutes Total Score: 9 - Feeding Plan Initial Plan: Exclusive throughout hospitalization
[2019-07-24] MEDS ORDERED: D5W-LR W/ 20 UNITS OXYTOCIN 1,000 ML IV SCH (09:00)
[2019-07-24] MEDS ORDERED: METHYLERGONOVINE MALEATE 0.2 MG/1 ML AMP IM ONE (09:00)
[2019-07-24] MEDS ORDERED: OXYTOCIN 20 UNITS in 0.9% NS 20 UNIT/1,000 ML INFUS.BAG IV SCH (09:00)
[2019-07-24] MEDS: ELECTROLYTE-148 SOLN 1,000 ML IV SCH (10:51)
[2019-07-24] MEDS: FERROUS SO4 325 MG TABLET (FP) PO SCH ×2 (10:51→22:05)
[2019-07-24] MEDS: PRENATAL VITAMINS W/ FOLIC ACID TABLET (FP) PO SCH (10:51)
[2019-07-25 08:32] LABS: BASO % 0.5 % (0-2.0); EOS % 1.1 % (0-4.5); HEMATOCRIT 30.7 % (32.4-45.2); HEMOGLOBIN 9.8 GM/dL (10.7-15.3); LYMPH % 16.6 % (8-40); MCH 24.6 pg (25.7-33.7); MCHC 31.8 g/dl (32.0-36.0); MEAN CELL VOLUME 77.3 fl (80-96); MEAN PLT VOLUME 9.4 fl (7.5-11.1); MONO % 5.3 % (3.8-10.2); NEUT % 76.5 % (42.8-82.8); PLATELET COUNT 128 K/MM3 (134-434); RBC 3.97 M/mm3 (3.60-5.2); RDW 15.4 % (11.6-15.6); WHITE BLOOD COUNT 14.2 K/mm3 (4.0-10.0)
[2019-07-25] MEDS: FERROUS SO4 325 MG TABLET (FP) PO SCH ×2 (09:38→21:56)
[2019-07-25] MEDS: PRENATAL VITAMINS W/ FOLIC ACID TABLET (FP) PO SCH (09:38)
--- NOTE | 2019-07-25 11:24 | PN ---
Post Progress Note - Subjective Subjective: Patient is doing well, ambulating, tolerating PO, lochia decreased, passing flatus, voiding Type of Delivery: Vital Signs: Vital Signs Temperature 97.8 F 07/25/19 06:00 Pulse Rate 78 07/25/19 06:00 Respiratory Rate 20 07/25/19 06:00 Blood Pressure 116/75 07/25/19 06:00 O2 Sat by Pulse Oximetry (%) 100 07/24/19 13:30 Breast Exam: Yes: Other (deferred) Uterus: Yes: Fundus Firm Abdomen/GI: Yes: Abdomen soft Lochia, amount: Small Extremities: Yes: Calves non-tender Activity: Ambulating - Labs Labs: CBC WBC 14.2 K/mm3 (4.0-10.0) H 07/25/19 07:45 RBC 3.97 M/mm3 (3.60-5.2) 07/25/19 07:45 Hgb 9.8 GM/dL (10.7-15.3) L 07/25/19 07:45 Hct 30.7 % (32.4-45.2) L 07/25/19 07:45 MCV 77.3 fl (80-96) L 07/25/19 07:45 MCH 24.6 pg (25.7-33.7) L 07/25/19 07:45 MCHC 31.8 g/dl (32.0-36.0) L 07/25/19 07:45 RDW 15.4 % (11.6-15.6) 07/25/19 07:45 Plt Count 128 K/MM3 (134-434) L 07/25/19 07:45 MPV 9.4 fl (7.5-11.1) 07/25/19 07:45 Absolute Neuts (auto) 10.9 K/mm3 (1.5-8.0) H 07/25/19 07:45 Neutrophils % 76.5 % (42.8-82.8) 07/25/19 07:45 Lymphocytes % 16.6 % (8-40) 07/25/19 07:45 Monocytes % 5.3 % (3.8-10.2) 07/25/19 07:45 Eosinophils % 1.1 % (0-4.5) 07/25/19 07:45 Basophils % 0.5 % (0-2.0) 07/25/19 07:45 Nucleated RBC % 0 % (0-0) 07/25/19 07:45 Problem List - Problems (1) Cholestasis during Code(s): O26.619 - LIVER AND BILIARY TRACT DISORD IN , UNSP TRIMESTER; K83.1 - OBSTRUCTION OF BILE DUCT Assessment/Plan PPD # 1 in stable condition, declined 's circ -Continue PP care -Encourage breast feeding and ambulation -Anticipate D/C home tomorrow
--- NOTE | 2019-07-25 11:29 | DS ---
Physical Examination Vital Signs: Vital Signs Temperature 97.8 F 07/25/19 06:00 Pulse Rate 78 07/25/19 06:00 Respiratory Rate 20 07/25/19 06:00 Blood Pressure 116/75 07/25/19 06:00 O2 Sat by Pulse Oximetry (%) 100 07/24/19 13:30 Findings/Remarks: Patient is doing well, desiing to go home. PP precautions discussed Constitutional: Yes: Well Nourished, No Distress HENT: Yes: Atraumatic Neck: Yes: Supple Cardiovascular: Yes: Regular Rate and Rhythm Respiratory: Yes: Regular Gastrointestinal: Yes: WNL ...Rectal Exam: Yes: Deferred Renal/: Yes: Other (deferred) Breast(s): Yes: WNL Musculoskeletal: Yes: WNL Extremities: Yes: WNL Edema: LLE: Trace, RLE: Trace Integumentary: Yes: WNL Neurological: Yes: Alert, Oriented ...Motor Strength: WNL Psychiatric: Yes: Alert, Oriented Labs: CBC, BMP 07/25/19 07:45 07/22/19 10:24 Discharge Summary Problems reviewed: Yes Reason For Visit: INDUCTION OF LABOR Current Active Problems Cholestasis during (Acute) Procedures: Principal: VD Hospital Course: Uncomplicated IOL for cholestasis of , vaginal delivery, and recovery Plan of Treatment: See below Condition: Stable - Instructions Diet, Activity, Other Instructions: Return to regular activity and diet as tolerated. Follow up at health center in 3-4 weeks. Call MD with any questions or concerns Referrals: Andressa Godinez CNM [Certified Nurse [employer]ular [employer]] - Disposition: HOME - Home Medications Comprehensive Discharge Medication List: Ambulatory Orders Prenat 115/Iron Fum/Folic/Dss [ 19 Tablet] 1 tab PO DAILY 07/22/19 Ursodiol 1 tab PO BID 07/22/19 Acetaminophen [Tylenol] 650 mg PO Q6H PRN #30 capsule MDD 5 07/25/19 Ibuprofen 600 mg PO Q6H PRN #30 tablet 07/25/19
[2019-07-25] MEDS: FENTANYL/BUPIVACAINE/NS/PF - PCEA - 50 ML DISP.SYRIN EP SCH (11:47)
[2019-07-25] MEDS ORDERED: SENNOSIDES/DOCUSATE COMBO (SENNA PLUS) TABLET (UD) PO PRN (22:00)
[2019-07-26] MEDS: PRENATAL VITAMINS W/ FOLIC ACID TABLET (FP) PO SCH (09:15)
[2019-07-26] MEDS: FERROUS SO4 325 MG TABLET (FP) PO SCH (09:15)
[2019-07-26 11:37] VITALS: BP 124/74; PULSE 87; TEMP 97.5
== END 2019-07-26 14:00 | disposition home or self-care (01) | DRG 560 ==
LOC: JLDR 09:50 → J3W 07-24 13:26
PROVIDERS: ADMIT Obstetrics & Gynecology; ATTEND Obstetrics & Gynecology
PROC: 10E0XZZ Delivery of Products of Conception, External Approach (ICD-10-PCS; principal; 2019-07-24)
DX: O26.62 Liver and biliary tract disorders in childbirth (principal); K83.1 Obstruction of bile duct; Z3A.37 37 weeks gestation of pregnancy; Z37.0 Single live birth
CPT/HCPCS: 36415; 36600; 59409; 80048; 82803; 85025; 85610; 85730; 86593; 86850; 86900; 86901

== ENCOUNTER 2020-07-04 21:56 | Emergency (ER) | payer OTHER ==
[2020-07-04 22:04] VITALS: BMI 30.9
[2020-07-05 01:09] LABS: HEMATOCRIT 39.1 % (32.4-45.2); HEMOGLOBIN 12.5 GM/dL (10.7-15.3); MCH 25.9 pg (25.7-33.7); MEAN CELL VOLUME 80.9 fl (80-96); PLATELET COUNT 206 K/MM3 (134-434); RBC 4.83 M/mm3 (3.60-5.2); RDW 14.5 % (11.6-15.6); WHITE BLOOD COUNT 9.7 K/mm3 (4.0-10.0)
[2020-07-05 01:10] LABS: BASO % 0.3 % (0-2.0); EOS % 3.2 % (0-4.5); LYMPH % 31.2 % (8-40); MEAN PLT VOLUME 9.6 fl (7.5-11.1); MONO % 7.2 % (3.8-10.2); NEUT % 58.1 % (42.8-82.8)
[2020-07-05 02:17] LABS: URINE COLOR YELLOW
[2020-07-05 02:18] LABS: URINE APPEARANCE CLEAR; URINE BILIRUBIN NEGATIVE (NEGATIVE); URINE GLUCOSE (UA) NEGATIVE (NEGATIVE); URINE KETONE TRACE (NEGATIVE)
[2020-07-05 02:19] LABS: PH,URINE 5.5 (5.0-8.0); URINE LEUK ESTERASE TRACE (NEGATIVE); URINE NITRITE NEGATIVE (NEGATIVE); URINE PROTEIN NEGATIVE (NEGATIVE)
[2020-07-05 02:22] VITALS: BP 110/79; PULSE 84; TEMP 98.3
[2020-07-05 02:36] LABS: EPI CELLS 34.4 /uL (0-25.1); HYALINE CASTS 2.82 /uL (0-3.1); URINE BACTERIA 45.8 /uL (0-1359); URINE RBC 448.5 /uL (0-23.9); URINE WBC 24.7 /uL (0-25.8)
[2020-07-05 03:16] LABS: POTASSIUM 4.2 mmol/L (3.5-5.1)
[2020-07-05 03:18] LABS: BLOOD UREA NITROGEN 16.1 mg/dL (7-18)
[2020-07-05 03:19] LABS: ALBUMIN 3.9 g/dl (3.4-5.0)
[2020-07-05 03:22] LABS: CREATININE 0.6 mg/dL (0.55-1.3)
[2020-07-05 03:23] LABS: BILIRUBIN,TOTAL 0.2 mg/dL (0.2-1); TOT PROT 7.9 g/dl (6.4-8.2)
[2020-07-05] MEDS ORDERED: CEPHALEXIN MONOHYDRATE 500 MG CAPSULE (UD) PO ONE (03:46)
[2020-07-05] MEDS ORDERED: CEPHALEXIN MONOHYDRATE 500 MG CAPSULE (UD) ONE (04:18)
== END 2020-07-05 05:58 | disposition home or self-care (01) ==
LOC: JER 21:56
DX: O20.0 Threatened abortion (principal)
CPT/HCPCS: 36415; 76817-TC; 80053; 81003; 84702; 84703; 85025; 85730; 86850; 86900; 86901; 87086; 99284-25